=== PATIENT | male | born 1990 | race Caucasian/White ===

== ENCOUNTER 2021-09-14 02:04 | Emergency (ER) | payer OTHER, SELFPAY ==
[2021-09-14 02:05] VITALS: BP 164/94; PULSE 91; RESP 15; TEMP 36.4; O2SAT 99; BMI 42.4
--- NOTE | 2021-09-14 02:19 | ED.VIS.DENTA ---
HPI History of Present Illness Chief Complaint: Dental Informant: patient Narrative Narrative: Patient states he has had a cavity in the left upper posterior molar for a couple years. But has been bothering him. Its been bothering him more over the last few weeks and in the last day it really aggravated. No fevers chills sweats. No drainage. No acute fracture. He had similar problem couple years ago with a different tooth. He was on antibiotics and then they did a extraction or repair about 10 days later and he has done well. He has not seen a dentist because his new job does not have dental insurance. No other complaints. Chewing makes it worse nothing really makes it better. PFSH PFSH Home Medications naproxen 500 mg PO BID #20 tab 09/14/21 [Rx Last Taken Unknown] penicillin V potassium 500 mg PO 4X/DAY #40 tab 09/14/21 [Rx Last Taken Unknown] Allergy/AdvReac Type Severity Reaction Status Date / Time No Known Allergies Allergy Verified 09/14/21 02:08 Social History Smoking Status: Never smoker ROS ROS ED Constitutional Constitutional ED: Denies chills or fever(s) ENT ENT ED: Reports other Details: See history of present illness peer ; Denies ear pain, rhinorrhea or sore throat Cardiovascular Cardiovascular: Denies chest pain Respiratory/Chest Respiratory/Chest: Denies dyspnea Gastrointestinal Gastrointestinal: Denies nausea or vomiting Musculoskeletal Musculoskeletal: Denies neck pain Neurologic Neurologic: Denies headache(s) Hematologic/Lymphatic Hematologic/Lymphatic: Denies easy bleeding or easy bruising EXAM Physical Exam Const Vital Signs: 09/14/21 02:05 Temperature 97.6 F L Temperature Source Temporal Pulse Rate 91 Respiratory Rate 15 Blood Pressure 164/94 H Blood Pressure Mean 117 Pulse Ox 99 Oxygen Delivery Method Room Air Positive well nourished and well developed General Appearance ED: well developed and NAD HEENT HEENT Narrative: No facial tenderness rash or swelling. Dental exam does show left upper molar with an erosion on the posterior surface. Signs of cavity. There is some erythema of the gums and mild tenderness. No real swelling. Voice is normal. Lower jaws normal other than fillings. No sign of Roula's angina. Negative for trauma or tenderness Eyes EOMs intact bilaterally Neck no lymphadenopathy and supple Resp normal respiratory effort Cardio regular rate Neuro Sensorium / Orientation: alert Psych mental status grossly normal Skin no rashes or lesions noted MDM MDM MDM Narrative Medical decision making narrative: Patient will be treated with nonsteroidals and antibiotics. He has no allergies. Recommend follow-up with dentist. I will give him a dental referral sheet that we have here. Discharge Plan Triage Chief Complaint: Dental ED Provider: Phong Baron Dx/Rx/DC Orders Clinical Impression: Pain, dental Instructions: ED Dental Pain Prescriptions: New penicillin V potassium 500 MG tablet 500 mg PO 4X/DAY Qty: 40 RF: 0 naproxen 500 MG tablet 500 mg PO BID Qty: 20 RF: 0 Primary Care Provider: Sary Alegria Referrals: Sary Alegria MD [Primary Care Provider] - As Needed Activity Restrictions/Additional Instructions: Follow-up with dentist as soon as possible. Disposition Disposition: Home, Self Care
[2021-09-14] MEDS: Penicillin Vk 250 MG Tablet 500 MG PO (02:41)
[2021-09-14] MEDS: Naproxen 500 MG Tablet PO (02:41)
[2021-09-14 02:42] VITALS: BP 137/89; PULSE 89; RESP 15
== END 2021-09-14 02:44 | disposition home or self-care (01) ==
LOC: ED 02:29
PROVIDERS: Emergency Provider Emergency Medicine; PCP Family Medicine; Visit Provider Emergency Medicine
DX: K08.89 Other specified disorders of teeth and supporting structures (principal)
CPT/HCPCS: 99283